=== PATIENT | female | born 2000 | race African-American/Black ===

== ENCOUNTER 2018-03-12 14:22 | Emergency (ER) | payer OTHER ==
[2018-03-12 16:31] LABS: URINE HCG POC HCG NEGATIVE (Negative)
[2018-03-12] MEDS: IV NORMAL SALINE 1000ML BAG 1,000 ML IV (17:19)
[2018-03-12 17:23] LABS: ADD MAN DIFF? NO
[2018-03-12 17:26] LABS: BASO % 1 % (0-3); EOS % 1 % (0-3); HEMATOCRIT 41.1 % (36.0-47.0); HEMOGLOBIN 13.3 g/dL (12.0-15.5); LYMPH # 0.6 x10^3/uL (1.0-4.8); LYMPH % 12 % (24-48); MEAN CORPUSCULAR HEMOGLOBIN 27 pg (25-35); MEAN CORPUSCULAR HGB CONC 32 g/dL (31-37); MEAN CORPUSCULAR VOLUME 82 fL (79-100); MONO # 0.4 x10^3/uL (0.0-1.1); MONO % 9 % (0-9); NEUT # 3.9 x10^3uL (1.8-7.7); NEUT % 78 % (31-73); PLATELET COUNT 266 x10^3/uL (140-400); RED BLOOD COUNT 5.03 x10^6/uL (3.50-5.40); WHITE BLOOD COUNT 4.9 x10^3/uL (4.0-11.0)
[2018-03-12 17:39] LABS: ANION GAP 9 (6-14); BLOOD UREA NITROGEN 8 mg/dL (7-20); BUN/CREATININE RATIO 9 (6-20); CALCIUM 9.4 mg/dL (8.5-10.1); CARBON DIOXIDE 26 mmol/L (21-32); CHLORIDE 102 mmol/L (98-107); CREATININE 0.9 mg/dL (0.6-1.0); GFR 97.6; GLUCOSE 88 mg/dL (70-99); POTASSIUM 3.4 mmol/L (3.5-5.1); SODIUM 137 mmol/L (136-145)
[2018-03-12 17:43] LABS: NEG OBC SER NEG; POS OBC SER POS; PREG TEST PT QUAL NEGATIVE (NEG)
[2018-03-12 17:45] LABS: ALBUMIN 3.8 g/dL (3.4-5.0); ALBUMIN/GLOBULIN RATIO 0.7 (1.0-1.7); ALK PHOS 66 U/L (46-116); ALT (SGPT) 24 U/L (14-59); AST (SGOT) 20 U/L (15-37); TOTAL BILIRUBIN 0.9 mg/dL (0.2-1.0); TOTAL PROTEIN 8.9 g/dL (6.4-8.2)
== END 2018-03-12 19:05 | disposition home or self-care (01) ==
LOC: ER 14:22
DX: I95.1 Orthostatic hypotension (principal)
CPT/HCPCS: 36415; 80053; 81025; 84703; 85025; 93005; 96360; 99285-25; J7030